=== PATIENT | male | born 1945 | race Caucasian/White ===

== ENCOUNTER 2024-01-27 13:03 | Inpatient (IN) | payer MEDICARE, OTHER ==
[~2024-01-27] VITALS: Ht 170.2 cm; Wt 90.3 kg
[2024-01-27] MEDS ORDERED: SENN8.6T19 PO (13:27)
[2024-01-27] MEDS ORDERED: POLY17PO4 PO (13:27)
[2024-01-27] MEDS ORDERED: MELA5TAB PO (13:27)
[2024-01-27] MEDS ORDERED: CEFT1FRO2 IV (13:27)
[2024-01-27] MEDS ORDERED: BISA10SU61 RC (13:27)
[2024-01-27] MEDS ORDERED: ACET325T53 PO (13:27)
[2024-01-27] MEDS ORDERED: CHOL100045 PO (13:27)
[2024-01-27] MEDS ORDERED: ASCO500C18 PO (13:27)
[2024-01-27] MEDS ORDERED: VITA-287 PO (13:27)
[2024-01-27] MEDS ORDERED: DOCU-141 PO (13:27)
[2024-01-27] MEDS ORDERED: IBUP-1953 PO (13:27)
[2024-01-27] MEDS ORDERED: NA P133E RC (13:27)
[2024-01-27] MEDS ORDERED: MAGN400O6 PO (13:27)
[2024-01-27] MEDS ORDERED: METO50TA16 PO (13:27)
[2024-01-27] MEDS ORDERED: APIX5TAB PO (13:27)
[2024-01-27] MEDS ORDERED: CEFTRIAXONE /D5W 50ML IVPB **ER PYXIS IV ONE (13:28)
[2024-01-27] MEDS: IV NORMAL SALINE 1000 ML BAG IV ONE (13:30)
[2024-01-27] MEDS: CEFTRIAXONE 2 G in IV DEXTROSE 5% 100 ML IV ONE (13:30)
[2024-01-27 14:02] LABS: ALANINE AMINOTRANSFERASE 27 U/L (16-63); ALBUMIN 3.4 g/dL (3.4-5.0); ALKALINE PHOSPHATASE 139 U/L (50-136); ASPARTATE AMINOTRANSFERASE 10 U/L (15-37); BILIRUBIN,DIRECT 0.1 mg/dL (0.0-0.2); BILIRUBIN,TOTAL 0.5 mg/dL (0.2-1.0); CALCIUM 8.8 mg/dL (8.5-10.1); CARBON DIOXIDE 27 mmol/L (21-32); CHLORIDE 107 mmol/L (98-107); CREATININE 1.1 mg/dL (0.6-1.3); GLUCOSE 95 mg/dL (74-106); NT-PRO BNP 798 pg/mL (0-125); POTASSIUM 4.2 mmol/L (3.5-5.1); SODIUM SERUM 141 mmol/L (136-145); TOTAL PROTEIN, SERUM 7.7 g/dL (6.4-8.2); UREA NITROGEN, BLOOD 21 mg/dL (7-18)
[2024-01-27 14:14] LABS: BASOPHILS % (AUTO) 0.9 % (0.0-2.0); DIFFERENTIAL COMMENT 0; EOSINOPHILS # (AUTO) 0.1 K/uL (0.0-0.7); EOSINOPHILS % (AUTO) 2.5 % (0.0-7.0); HEMATOCRIT 36.9 % (36.7-47.1); HEMOGLOBIN 12.3 g/dL (12.5-16.3); LYMPHOCYTES # (AUTO) 1.7 K/uL (0.8-4.8); LYMPHOCYTES % (AUTO) 35.6 % (20.5-51.5); MEAN CORPUSCULAR HEMOGLOBIN 29.1 uug (23.8-33.4); MEAN CORPUSCULAR HGB CONC 33 g/dL (32.5-36.3); MEAN CORPUSCULAR VOLUME 87.5 fL (73.0-96.2); MONOCYTES # (AUTO) 0.4 K/uL (0.1-1.30); MONOCYTES % (AUTO) 8.6 % (0.0-11.0); NEUTROPHILS # (AUTO) 2.5 K/uL (1.8-8.9); NEUTROPHILS % (AUTO) 52.4 % (38.5-71.5); PLATELET COUNT (AUTO) 248 K/uL (152-348); RED BLOOD CELL COUNT(AUTO) 4.21 MIL/uL (4.06-5.63); RED CELL DISTRIBUTION WIDTH 15.1 % (12.1-16.2); WHITE BLOOD COUNT (AUTO) 4.8 K/uL (3.6-10.2)
[2024-01-27 14:26] LABS: *BILIRUBIN,URIN NEGATIVE (NEGATIVE); *BLOOD, URINE 2+ (NEGATIVE); *CLARITY,URINE CLEAR (CLEAR); *COLOR,URINE YELLOW (YELLOW); *KETONES,URINE NEGATIVE (NEGATIVE); *PROTEIN,URINE TRACE (NEGATIVE); *UROBILINOGEN,URINE 0.2 E.U./dl (NORMAL); LEUKOCYTE ESTERASE ,URINE TRACE (NEGATIVE); NITRITE, URINE NEGATIVE (NEGATIVE); UGLUCOSE NEGATIVE (NEGATIVE)
[2024-01-27 14:52] LABS: BACTERIA,URINE MANY /HPF (NONE SEEN); RBC,URINE 20-50 /HPF (0-3); SQUAMOUS EPITHELIAL CELL,UR FEW /HPF (NONE SEEN)
[2024-01-27 16:21] VITALS: BP 158/83; TEMP 98.3; O2SAT 98
[2024-01-27] MEDS ORDERED: ONDANSETRON 4 MG/2 ML VIAL IV PRN ×2 (17:45→20:15)
[2024-01-27] MEDS ORDERED: MORPHINE SULFATE 2 MG/1 ML DISP.SYRIN IV PRN (18:00)
[2024-01-27] MEDS ORDERED: MAGNESIUM HYDROXIDE 30 ML LIQUID UDC PO PRN (20:00)
[2024-01-27] MEDS ORDERED: BISACODYL 10 MG SUPP.RECT RC PRN (20:00)
[2024-01-27] MEDS ORDERED: FLEET ENEMA 133 ML BOTTLE RC PRN (20:00)
[2024-01-27] MEDS ORDERED: ENALAPRILAT DIHYDRATE 1.25 MG/1 ML VIAL IV PRN (20:15)
[2024-01-27] MEDS ORDERED: TEMAZEPAM 15 MG CAPSULE PO PRN (20:15)
[2024-01-27] MEDS ORDERED: Medication Not On Formulary EA (Melatonin 1 TAB) PO SCH (21:00)
[2024-01-27] MEDS: DOCUSATE SODIUM 100 MG CAPSULE PO SCH (21:04)
[2024-01-27] MEDS: METOPROLOL TARTRATE 25 MG TABLET PO SCH (21:04)
[2024-01-27] MEDS: IV D5 1/2 NS 1000 ML 1,000 ML IV PRN (21:06)
[2024-01-27] MEDS ORDERED: PIPERACILLIN/TAZOBACTAM/D5W 50 ML IV ONE (21:45)
[2024-01-27] MEDS ORDERED: PIPERACILLIN SODIUM/TAZOBACTAM 3.375 G in IV DEXTROSE 5% 50 ML IV SCH (22:00)
[2024-01-27] MEDS: PIPERACILLIN SODIUM/TAZOBACTAM 3.375 G in IV DEXTROSE 5% 50 ML IV SCH (22:04)
[2024-01-27 22:35] VITALS: BP 167/74; TEMP 98; O2SAT 99
[2024-01-28 01:54] VITALS: BP 138/62; TEMP 98.2; O2SAT 100
[2024-01-28 06:07] LABS: *OCCULT BLOOD STOOL NEGATIVE (NEGATIVE)
[2024-01-28] MEDS: PANTOPRAZOLE SODIUM 40 MG TABLET.DR PO SCH (06:18)
[2024-01-28 07:14] LABS: BASOPHILS # (AUTO) 0.1 K/UL (0.0-0.2); BASOPHILS % (AUTO) 0.9 % (0.0-2.0); EOSINOPHILS # (AUTO) 0.2 K/uL (0.0-0.7); EOSINOPHILS % (AUTO) 2.5 % (0.0-7.0); HEMATOCRIT 37.4 % (36.7-47.1); HEMOGLOBIN 12.6 g/dL (12.5-16.3); LYMPHOCYTES % (AUTO) 32.3 % (20.5-51.5); MEAN CORPUSCULAR HEMOGLOBIN 29.3 uug (23.8-33.4); MEAN CORPUSCULAR HGB CONC 34 g/dL (32.5-36.3); MEAN CORPUSCULAR VOLUME 86.7 fL (73.0-96.2); MONOCYTES # (AUTO) 0.5 K/uL (0.1-1.30); MONOCYTES % (AUTO) 7.6 % (0.0-11.0); NEUTROPHILS # (AUTO) 3.6 K/uL (1.8-8.9); NEUTROPHILS % (AUTO) 56.7 % (38.5-71.5); PLATELET COUNT (AUTO) 233 K/uL (152-348); RED BLOOD CELL COUNT(AUTO) 4.31 MIL/uL (4.06-5.63); RED CELL DISTRIBUTION WIDTH 14.7 % (12.1-16.2); WHITE BLOOD COUNT (AUTO) 6.3 K/uL (3.6-10.2)
[2024-01-28 07:28] LABS: ALBUMIN 3.3 g/dL (3.4-5.0); BILIRUBIN,TOTAL 0.8 mg/dL (0.2-1.0); CALCIUM 8.7 mg/dL (8.5-10.1); CREATININE 1.1 mg/dL (0.6-1.3); MAGNESIUM 1.7 mg/dL (1.8-2.4); PHOSPHOROUS 3.3 mg/dL (2.5-4.9); POTASSIUM 3.6 mmol/L (3.5-5.1); TOTAL PROTEIN, SERUM 7.2 g/dL (6.4-8.2)
[2024-01-28 07:43] LABS: DIFFERENTIAL COMMENT 1
[2024-01-28 07:45] LABS: THYROID STIMULATING HORMONE 2.133 mIU/mL (0.358-3.740)
[2024-01-28] MEDS: APIXABAN 5 MG TABLET PO SCH (08:43)
[2024-01-28] MEDS: MAGNESIUM SULFATE/D5W 100 ML IV SCH (09:47)
[2024-01-28] MEDS: POTASSIUM CHLORIDE 50 ML IV SCH (09:47)
[2024-01-28] MEDS ORDERED: DIATR MEGLU/DIATRIZOATE SODIUM 30 ML BOTTLE ONE (10:35)
[2024-01-28 12:00] VITALS: BP 143/71; TEMP 98.7; O2SAT 98
[2024-01-28] MEDS: PIPERACILLIN SODIUM/TAZOBACTAM 3.375 G in IV DEXTROSE 5% 100 ML IV SCH (14:08)
[2024-01-28 16:09] VITALS: BP 152/75; TEMP 97.6; O2SAT 97
[2024-01-28] MEDS: MELATONIN 3 MG TABLET PO SCH (20:28)
[2024-01-28 20:45] VITALS: BP 172/89; TEMP 97.4; O2SAT 98
[2024-01-29 04:36] VITALS: BP 163/72; TEMP 97.8; O2SAT 96
[2024-01-29 08:29] VITALS: BP 155/77; TEMP 97.5; O2SAT 96
[2024-01-29] MEDS ORDERED: hydrALAZINE HCL 25 MG TABLET PO PRN (08:30)
[2024-01-29] MEDS ORDERED: APIXABAN 5 MG TABLET PO SCH (09:00)
[2024-01-29] MEDS: CARBIDOPA/LEVODOPA 25-100MG TABLET PO SCH (09:24)
[2024-01-29] MEDS: ENALAPRIL 5 MG TABLET PO SCH (09:24)
[2024-01-29] MEDS ORDERED: CEPH500C2 PO (09:55)
[2024-01-29 12:00] VITALS: BP 138/70; TEMP 98.4; O2SAT 100
[2024-01-29 14:17] VITALS: BP 137/72; TEMP 97.8; O2SAT 96
[2024-01-29] MEDS: ACETAMINOPHEN 325 MG TABLET PO PRN (19:00)
[2024-01-29 20:00] VITALS: BP 131/69; TEMP 98; O2SAT 97
[2024-01-30 06:00] VITALS: BP 149/84; TEMP 98.2; O2SAT 98
[2024-01-30 11:28] VITALS: BP 110/60; TEMP 98.2; O2SAT 99
== END 2024-01-30 12:45 | DRG 640 ==
LOC: ER 13:07 → TELE-TD3 15:39 → TELE3 16:00 → MEDSURG3 01-28 10:00
PROVIDERS: ADMIT Internal Medicine; ATTEND Internal Medicine
DX: E86.0 Dehydration (principal); G92.8 Other toxic encephalopathy; N39.0 Urinary tract infection, site not specified; K56.609 Unspecified intestinal obstruction, unspecified as to partial versus complete obstruction; D68.59 Other primary thrombophilia; M48.56XA Collapsed vertebra, not elsewhere classified, lumbar region, initial encounter for fracture; M84.454A Pathological fracture, pelvis, initial encounter for fracture; M84.48XA Pathological fracture, other site, initial encounter for fracture; I48.0 Paroxysmal atrial fibrillation; Z79.01 Long term (current) use of anticoagulants; Z74.09 Other reduced mobility; G89.29 Other chronic pain; M25.562 Pain in left knee; M15.9 Polyosteoarthritis, unspecified; N40.0 Benign prostatic hyperplasia without lower urinary tract symptoms; J84.10 Pulmonary fibrosis, unspecified; R16.2 Hepatomegaly with splenomegaly, not elsewhere classified; Z90.49 Acquired absence of other specified parts of digestive tract; R26.81 Unsteadiness on feet; Z91.81 History of falling; G30.9 Alzheimer's disease, unspecified; F02.80 Dementia in other diseases classified elsewhere, unspecified severity, without behavioral disturbance, psychotic disturbance, mood disturbance, and anxiety; R79.89 Other specified abnormal findings of blood chemistry; I70.90 Unspecified atherosclerosis; I11.9 Hypertensive heart disease without heart failure; R54 Age-related physical debility; Z91.041 Radiographic dye allergy status; Z91.011 Allergy to milk products; M85.89 Other specified disorders of bone density and structure, multiple sites
CPT/HCPCS: 36415; 71045; 74250; 82378; 83550; 83605; 83735; 84100; 84153; 84443; 84484; 85025; 85730; 87040; 93005; A4606; A4663; G0378; J0696; J2543; J3475; J3480; J7040; Q9963